=== PATIENT | female | born 1965 | race Caucasian/White ===

== ENCOUNTER 2025-01-26 09:05 | Outpatient (CLI) | payer OTHER | END 2025-01-26 09:06 | disposition home or self-care (01) | LOC: SCSRAD 09:05 | PROVIDERS: ATTEND Student in an Organized Health Care Education/Training Program | DX: M62.838 Other muscle spasm (principal); M47.814 Spondylosis without myelopathy or radiculopathy, thoracic region; M47.812 Spondylosis without myelopathy or radiculopathy, cervical region; Z00.00 Encounter for general adult medical examination without abnormal findings | CPT/HCPCS: 36415; 72040; 72072; 80053; 80061; 81001; 82306; 82607; 84443; 85025 ==

== ENCOUNTER 2025-03-23 13:04 | Outpatient (CLI) | payer OTHER | END 2025-03-23 13:05 | disposition home or self-care (01) | LOC: ULT 13:04 | PROVIDERS: ATTEND Student in an Organized Health Care Education/Training Program | DX: I65.22 Occlusion and stenosis of left carotid artery (principal); E78.2 Mixed hyperlipidemia | CPT/HCPCS: 93880 ==

== ENCOUNTER 2025-03-24 09:30 | Outpatient (CLI) | payer OTHER | END 2025-03-24 09:31 | disposition home or self-care (01) | LOC: BICCT 09:30 | PROVIDERS: ATTEND Student in an Organized Health Care Education/Training Program | DX: I65.22 Occlusion and stenosis of left carotid artery (principal); E78.2 Mixed hyperlipidemia | CPT/HCPCS: 75571 ==

== ENCOUNTER 2025-04-18 13:23 | Outpatient (CLI) | payer OTHER | END 2025-04-18 13:24 | disposition home or self-care (01) | LOC: BICMAMMO 13:23 | PROVIDERS: ATTEND Student in an Organized Health Care Education/Training Program | DX: Z12.31 Encounter for screening mammogram for malignant neoplasm of breast (principal); N64.89 Other specified disorders of breast | CPT/HCPCS: 77063; 77067 ==